=== PATIENT | female | born 1940 | race Caucasian/White ===

== ENCOUNTER 2019-09-15 11:04 | Observation (INO) ==
[2019-09-15] MEDS ORDERED: Ondansetron 4 MG/2 ML VIAL IVP ONE (11:25)
[2019-09-15] MEDS ORDERED: 0.9 % Sodium Chloride 1,000 ML IVC ONE (11:25)
[2019-09-15] MEDS ORDERED: Morphine Sulfate 2 MG/ML SYRINGE IVP ONE (11:25)
[2019-09-15 12:11] LABS: Bilirubin,Urine Negative (Negative); Blood,Urine Negative (Negative); Clarity,Urine Clear (Clear); Color,Urine Yellow (Yellow); Glucose,Urine (UA) Normal (Normal); Ketones,Urine Negative (Negative); Leukocyte Esterase,Urine Negative (Negative); Nitrite,Urine Negative (Negative); PH,Urine 6.5 pH Units (5.0-8.0); Protein,Urine Negative (Neg-Trace); Specific Gravity,Urine > 1.030 (1.010-1.025); Urobilinogen,Urine Normal (Normal)
[2019-09-15 12:11] LABS: Basophils % 0.1 %; Eosinophils % 0.1 %; Hematocrit 36.2 % (35.3-44.9); Hemoglobin 12.8 g/dL (11.5-15.4); Immature Granulocytes % 0.5 % (0-4); Lymphocytes # 1.4 K/mcL (0.6-4.6); Lymphocytes % 8.3 %; Mean Corpuscular HGB Conc 35.4 g/dL (31.6-35.5); Mean Corpuscular Hemoglobin 32.7 pg (28.0-33.3); Mean Corpuscular Volume 92.3 fL (83.0-100.0); Mean Platelet Volume 10.4 fL (9.4-12.4); Neutrophils # 14.2 K/mcL (1.6-8.9); Platelet Count 232 K/mcL (140-400); Red Blood Count 3.92 M/mcL (3.82-4.97); Red Cell Distribution Width 13.7 % (11.5-14.5); White Blood Count 16.7 K/mcL (4.3-11.1)
[2019-09-15 13:02] LABS: Alanine Aminotransferase 20 Units/L (7-52); Albumin 3.1 g/dL (3.5-5.7); Albumin/Globulin Ratio 1.1 (1.1-2.2); Alkaline Phosphatase 191 Units/L (34-104); Aspartate Amino Transferase 32 Units/L (13-39); BUN/Creatinine Ratio 19 (6-26); Bilirubin,Direct 0.1 mg/dL (0.0-0.2); Bilirubin,Indirect 0.3 mg/dL (0.0-1.0); Bilirubin,Total 0.4 mg/dL (0.3-1.0); Blood Urea Nitrogen 10 mg/dL (8-23); Calcium 8.1 mg/dL (8.6-10.3); Carbon Dioxide 28 mEq/L (23-29); Chloride 93 mEq/L (98-107); Globulin 2.7 g/dL (2.4-3.5); Glucose 100 mg/dL (70-105); Lipase 11 Units/L (11-82); Osmolality,Calculated 267 (280-300); Potassium 2.9 mEq/L (3.5-5.1); Sodium 129 mEq/L (136-145); Total Protein 5.8 g/dL (6.4-8.9); eGFR For African Americans > 60 (> 60); eGFR For Non-African Americans > 60 (> 60)
[2019-09-15] MEDS ORDERED: 0.9 % Sodium Chloride w KCl 40 MEQ/1,000 ML MLS IVC SCH (18:00)
[2019-09-15] MEDS ORDERED: Pantoprazole 40 MG VIAL IVP ONE (18:03)
[2019-09-15] MEDS ORDERED: Potassium Chloride 40 MEQ, Lidocaine 1% 2 ML in 0.9 % Sodium Chloride 500 ML IVPB ONE (18:07)
[2019-09-15] MEDS ORDERED: Naloxone 0.4 MG/ML INJ IVP PRN (22:08)
[2019-09-15] MEDS ORDERED: Ondansetron 4 MG/2 ML VIAL IVP PRN (22:08)
[2019-09-15] MEDS ORDERED: Ringers Solution, Lactated 1,000 ML IVC SCH (23:00)
[2019-09-16] MEDS ORDERED: cefTRIAXone 2,000 MG in Water for inj. (sterile) 20 ML IVPB SCH (05:00)
[2019-09-16] MEDS ORDERED: MetroNIDAZOLE 500 MG/100 ML 500 MG/100 ML BAG IVPB SCH (05:00)
[2019-09-16 05:36] LABS: Basophils % 0.1 %; Eosinophils % 0.2 %; Hemoglobin 12.5 g/dL (11.5-15.4); Immature Granulocytes % 0.5 % (0-4); Lymphocytes # 1.4 K/mcL (0.6-4.6); Lymphocytes % 8.8 %; Mean Corpuscular HGB Conc 33.8 g/dL (31.6-35.5); Mean Corpuscular Volume 97.6 fL (83.0-100.0); Mean Platelet Volume 10.6 fL (9.4-12.4); Monocytes # 0.9 K/mcL (0.0-1.3); Neutrophils # 13.2 K/mcL (1.6-8.9); Platelet Count 229 K/mcL (140-400); Red Blood Count 3.79 M/mcL (3.82-4.97); Red Cell Distribution Width 13.9 % (11.5-14.5); Segmented Neutrophils % 84.4 %; White Blood Count 15.6 K/mcL (4.3-11.1)
[2019-09-16 05:43] LABS: Prothrombin Time 11.6 Seconds (9.4-12.1)
[2019-09-16 05:54] LABS: Alanine Aminotransferase 9 Units/L (7-52); Albumin/Globulin Ratio 1.3 (1.1-2.2); Alkaline Phosphatase 92 Units/L (34-104); Aspartate Amino Transferase 18 Units/L (13-39); BUN/Creatinine Ratio 14 (6-26); Bilirubin,Total 0.4 mg/dL (0.3-1.0); Blood Urea Nitrogen 6 mg/dL (8-23); Carbon Dioxide 29 mEq/L (23-29); Chloride 99 mEq/L (98-107); Globulin 2.3 g/dL (2.4-3.5); Glucose 81 mg/dL (70-105); Osmolality,Calculated 279 (280-300); Potassium 3.1 mEq/L (3.5-5.1); Sodium 136 mEq/L (136-145); Total Protein 5.3 g/dL (6.4-8.9); eGFR For African Americans > 60 (> 60); eGFR For Non-African Americans > 60 (> 60)
[2019-09-16] MEDS ORDERED: Potassium Chloride Elixir 20 MEQ/15 ML UDC PO ONE (06:56)
[2019-09-16] MEDS ORDERED: *HR* Heparin 5,000 UNIT/ML VIAL SQ SCH (07:00)
[2019-09-16] MEDS ORDERED: Pantoprazole 40 MG VIAL IVP SCH (07:01)
[2019-09-16] MEDS ORDERED: Potassium Chloride 40 MEQ, Lidocaine 1% 2 ML in 0.9 % Sodium Chloride 500 ML IVPB ONE (07:12)
[2019-09-16 07:24] VITALS: BP 121/76
[2019-09-16] MEDS ORDERED: hydroCHLOROthiazide 25 MG TABLET PO SCH (09:00)
== END 2019-09-16 12:57 | disposition home or self-care (01) ==
LOC: 3ANU 11:04 → EMEROOARM 11:04 → 3ANU 20:14
PROVIDERS: ADMIT Student in an Organized Health Care Education/Training Program; ATTEND Student in an Organized Health Care Education/Training Program

== ENCOUNTER 2019-11-13 15:24 | Inpatient (IN) ==
[2019-11-13] MEDS ORDERED: Ipratropium/Albuterol Neb 3 ML IH ONE (16:02)
[2019-11-13] MEDS ORDERED: Isovue-370 500 ML BOTTLE IVP ONE (16:02)
[2019-11-13] MEDS ORDERED: 0.9 % Sodium Chloride 500 ML IVC ONE ×2 (16:15→20:45)
[2019-11-13 16:52] LABS: Basophils % 0.8 %; Eosinophils % 0.4 %; Hematocrit 36.5 % (35.3-44.9); Hemoglobin 12.9 g/dL (11.5-15.4); Immature Granulocytes % 1.2 % (0-4); Lymphocytes # 0.6 K/mcL (0.6-4.6); Lymphocytes % 11.4 %; Mean Corpuscular HGB Conc 35.3 g/dL (31.6-35.5); Mean Corpuscular Hemoglobin 32.3 pg (28.0-33.3); Mean Corpuscular Volume 91.3 fL (83.0-100.0); Mean Platelet Volume 10.7 fL (9.4-12.4); Monocytes # 0.2 K/mcL (0.0-1.3); Monocytes % 3.3 %; Platelet Count 185 K/mcL (140-400); Red Cell Distribution Width 14.3 % (11.5-14.5); Segmented Neutrophils % 82.9 %; White Blood Count 4.8 K/mcL (4.3-11.1)
[2019-11-13 16:59] LABS: INR 1.1; Prothrombin Time 12.3 Seconds (9.4-12.1)
[2019-11-13 17:17] LABS: Albumin 2.8 g/dL (3.5-5.7); Bilirubin,Total 1.3 mg/dL (0.3-1.0); Calcium 8.9 mg/dL (8.6-10.3); Globulin 2.8 g/dL (2.4-3.5); Potassium 3.8 mEq/L (3.5-5.1); Total Protein 5.6 g/dL (6.4-8.9); Troponin I 0.03 ng/mL (< 0.04)
[2019-11-13 17:22] LABS: Large Platelets Present (Not Present); Platelet Clumps Few (Not Present); Reactive Lymphocytes Present (Not Present); Toxic Vacuolation Present (Not Present)
[2019-11-13] MEDS ORDERED: cefTRIAXone 1,000 MG in Water for inj. (sterile) 10 ML IVP ONE (18:17)
[2019-11-13] MEDS ORDERED: Azithromycin 500 MG in 0.9 % Sodium Chloride 250 ML IVPB ONE (18:17)
[2019-11-13] MEDS ORDERED: 0.9 % Sodium Chloride 500 ML ONE (20:40)
[2019-11-13] MEDS ORDERED: *HR* Heparin 5,000 UNIT/ML VIAL IVP PRN ×2 (20:43)
[2019-11-13] MEDS ORDERED: *HR* Heparin 5,000 UNIT/ML VIAL IVP ONE (20:43)
[2019-11-13] MEDS ORDERED: Heparin 25,000 UNIT/250 ML D5W 25,000 UNIT/250 ML IV.SOLN IVC SCH (20:45)
[2019-11-14] MEDS ORDERED: Acetaminophen 325 MG TABLET PO PRN (00:50)
[2019-11-14] MEDS ORDERED: Naloxone 0.4 MG/ML INJ IVP PRN (00:50)
[2019-11-14] MEDS ORDERED: Ondansetron ODT 4 MG TAB.RAPDIS SL PRN (00:50)
[2019-11-14 01:28] LABS: ABG Base Excess -4 mEq/L (-2 to 3); ABG HCO3 25 mEq/L (21-27); ABG Oxygen Saturation 93 % (95-98); ABG PCO2 64 mmHg (35-45); ABG PO2 85 mmHg (85-104); ABG TCO2 27 mEq/L (20-26)
[2019-11-14 03:50] LABS: Basophils % 1.1 %; Eosinophils % 0.4 %; Hematocrit 35.1 % (35.3-44.9); Hemoglobin 11.7 g/dL (11.5-15.4); Immature Granulocytes % 2.8 % (0-4); Lymphocytes # 0.4 K/mcL (0.6-4.6); Lymphocytes % 13.7 %; Mean Corpuscular HGB Conc 33.3 g/dL (31.6-35.5); Mean Corpuscular Hemoglobin 31.7 pg (28.0-33.3); Mean Corpuscular Volume 95.1 fL (83.0-100.0); Monocytes # 0.1 K/mcL (0.0-1.3); Monocytes % 4.2 %; Platelet Count 119 K/mcL (140-400); Red Blood Count 3.69 M/mcL (3.82-4.97); Red Cell Distribution Width 14.5 % (11.5-14.5); Segmented Neutrophils % 77.8 %; White Blood Count 2.9 K/mcL (4.3-11.1)
[2019-11-14 03:52] LABS: Neutrophils # 2.3 K/mcL (1.6-8.9)
[2019-11-14 04:07] LABS: Potassium 3.7 mEq/L (3.5-5.1)
[2019-11-14 04:16] LABS: Platelet Estimate Normal (Normal)
[2019-11-14] MEDS ORDERED: Furosemide 20 MG/2 ML VIAL IVP ONE (04:45)
[2019-11-14 05:01] LABS: Hematocrit 34.9 % (35.3-44.9); Hemoglobin 11.8 g/dL (11.5-15.4); Mean Corpuscular HGB Conc 33.8 g/dL (31.6-35.5); Mean Corpuscular Hemoglobin 32.4 pg (28.0-33.3); Mean Corpuscular Volume 95.9 fL (83.0-100.0); Monocytes # 0.1 K/mcL (0.0-1.3); Platelet Count 133 K/mcL (140-400); Red Blood Count 3.64 M/mcL (3.82-4.97); Red Cell Distribution Width 14.4 % (11.5-14.5); White Blood Count 3.3 K/mcL (4.3-11.1)
[2019-11-14 05:26] LABS: Eosinophils # 0.1 K/mcL (0.0-0.6); Lymphocytes # 1.5 K/mcL (0.6-4.6); Neutrophils # 1.7 K/mcL (1.6-8.9)
[2019-11-14 05:27] LABS: Hypochromasia Present (Not Present); Platelet Estimate Normal (Normal)
[2019-11-14] MEDS: *HR* Dextrose 50 % in Water (Syg) 50 ML SYRINGE IVP ONE ×2 (08:01→17:26)
[2019-11-14] MEDS ORDERED: *HR* Midazolam HCl 5 MG/5 ML VIAL IVP ONE ×3 (09:27→09:51)
[2019-11-14] MEDS ORDERED: *HR* Etomidate 20 MG/10 ML AMPUL IVP ONE (09:47)
[2019-11-14 10:15] LABS: ABG Base Excess -2 mEq/L (-2 to 3); ABG HCO3 25 mEq/L (21-27); ABG Oxygen Saturation 96 % (95-98); ABG PCO2 53 mmHg (35-45); ABG PH 7.28 pH Units (7.32-7.45); ABG PO2 96 mmHg (85-104); ABG TCO2 27 mEq/L (20-26); Blood Gas Modality AVAPS; Blood Gas VT 450 cc
[2019-11-14 10:24] LABS: Bilirubin,Urine Small (Negative); Blood,Urine Negative (Negative); Clarity,Urine Cloudy (Clear); Color,Urine Dark Yellow (Yellow); Glucose,Urine (UA) Normal (Normal); Ketones,Urine Negative (Negative); Leukocyte Esterase,Urine Negative (Negative); Nitrite,Urine Negative (Negative); PH,Urine 5.5 pH Units (5.0-8.0); Protein,Urine Trace mg/dL (Neg-Trace); Specific Gravity,Urine 1.023 (1.010-1.025); Urobilinogen,Urine Normal (Normal)
[2019-11-14 10:27] LABS: Bacteria,Urine None Seen per hpf (None-Few); Squamous Epithelial Cell,Urine Many per lpf (None-Few)
[2019-11-14 10:35] LABS: Hyaline Casts,Urine Few per lpf (None-Few)
[2019-11-14] MEDS: Pantoprazole 40 MG VIAL IVP SCH (12:01)
[2019-11-14] MEDS ORDERED: Isovue-370 500 ML BOTTLE IVP ONE (12:48)
[2019-11-14] MEDS: Furosemide 20 MG/2 ML VIAL IVP SCH (12:50)
[2019-11-14] MEDS ORDERED: 0.9 % Sodium Chloride 1,000 ML IVC SCH (13:00)
[2019-11-14] MEDS ORDERED: *HR* Metoprolol 5 MG/5 ML VIAL IVP STA (14:50)
[2019-11-14] MEDS ORDERED: *HR* Metoprolol 5 MG/5 ML VIAL IVP ONE (14:52)
[2019-11-14] MEDS ORDERED: *HR* Digoxin 0.5 MG/2 ML AMPUL IVP STA (15:10)
[2019-11-14] MEDS ORDERED: Norepinephrine 4 MG in 0.9 % Sodium Chloride 250 ML IVC SCH (15:25)
[2019-11-14] MEDS ORDERED: *HR* Metoprolol 5 MG/5 ML VIAL IVP PRN (16:04)
[2019-11-14] MEDS: FentaNYL (PF) 1,000 MCG in 0.9 % Sodium Chloride 80 ML IVC SCH (16:13)
[2019-11-14] MEDS ORDERED: Artificial Tears SOLN 15 ML BOTTLE BOTH EYES PRN (16:16)
[2019-11-14] MEDS ORDERED: Vancomycin 1 EACH in 0.9 % Sodium Chloride 250 ML IVPB SCH (17:00)
[2019-11-14] MEDS: Phenylephrine 10 MG in 0.9 % Sodium Chloride 250 ML IVC SCH ×4 (17:03→22:25)
[2019-11-14 17:34] LABS: Albumin/Globulin Ratio 0.9 (1.1-2.2); Bilirubin,Total 0.6 mg/dL (0.3-1.0); Calcium 7.5 mg/dL (8.6-10.3); Globulin 2.2 g/dL (2.4-3.5); Magnesium 1.5 mg/dL (1.6-2.6); Potassium 3.7 mEq/L (3.5-5.1); Total Protein 4.2 g/dL (6.4-8.9)
[2019-11-14 17:43] LABS: ABG Base Excess -3 mEq/L (-2 to 3); ABG HCO3 24 mEq/L (21-27); ABG Oxygen Saturation 91 % (95-98); ABG PCO2 51 mmHg (35-45); ABG PH 7.29 pH Units (7.32-7.45); ABG PO2 69 mmHg (85-104); ABG TCO2 26 mEq/L (20-26); Blood Gas Modality ASSIST CONTROL; Blood Gas VT 450 cc
[2019-11-14] MEDS ORDERED: Azithromycin 500 MG in 0.9 % Sodium Chloride 250 ML IVPB SCH (18:00)
[2019-11-14] MEDS ORDERED: cefTRIAXone 2,000 MG in Water for inj. (sterile) 20 ML IVP SCH (18:00)
[2019-11-14] MEDS: Artificial Tears SOLN 15 ML BOTTLE BOTH EYES SCH ×2 (21:13→23:34)
[2019-11-14] MEDS: Chlorhexidine Rinse 15 ML MOUTHWASH MM SCH (21:13)
[2019-11-14] MEDS: Dexmedetomidine HCl 400 MCG/100 ML MLS IVC SCH (21:21)
[2019-11-14] MEDS: Piperacillin/Tazobactam 3.375 GM in 0.9 % Sodium Chloride Mini Bag 100 ML IVPB SCH (23:44)
[2019-11-15] MEDS: Phenylephrine 20 MG in 0.9 % Sodium Chloride 500 ML IVC SCH ×2 (00:39→06:35)
[2019-11-15] MEDS: FentaNYL (PF) 1,000 MCG in 0.9 % Sodium Chloride 80 ML IVC SCH ×3 (00:40→21:25)
[2019-11-15] MEDS: Artificial Tears SOLN 15 ML BOTTLE BOTH EYES SCH ×6 (03:41→23:51)
[2019-11-15 05:04] LABS: Basophils % 0.7 %; Nucleated Red Blood Cells 0.3 /100 WBC (0)
[2019-11-15 05:06] LABS: Basophils # 0.1 K/mcL (0.0-0.2); Eosinophils % 0.2 %; Hematocrit 32.6 % (35.3-44.9); Hemoglobin 11.3 g/dL (11.5-15.4); Immature Granulocytes % 5.6 % (0-4); Immature Platelets 9.6 % (1.1-6.1); Lymphocytes # 0.6 K/mcL (0.6-4.6); Lymphocytes % 5.3 %; Mean Corpuscular HGB Conc 34.7 g/dL (31.6-35.5); Mean Corpuscular Hemoglobin 32.1 pg (28.0-33.3); Mean Corpuscular Volume 92.6 fL (83.0-100.0); Mean Platelet Volume 11.4 fL (9.4-12.4); Monocytes # 0.5 K/mcL (0.0-1.3); Neutrophils # 10.2 K/mcL (1.6-8.9); Red Blood Count 3.52 M/mcL (3.82-4.97); Red Cell Distribution Width 14.4 % (11.5-14.5); Segmented Neutrophils % 84.2 %; White Blood Count 12.1 K/mcL (4.3-11.1)
[2019-11-15 05:17] LABS: ABG Base Excess -4 mEq/L (-2 to 3); ABG HCO3 22 mEq/L (21-27); ABG Oxygen Saturation 94 % (95-98); ABG PCO2 46 mmHg (35-45); ABG PO2 78 mmHg (85-104); ABG TCO2 24 mEq/L (20-26); Blood Gas Modality ASSIST CONTROL; Blood Gas VT 450 cc
[2019-11-15 05:22] LABS: BUN/Creatinine Ratio 45 (6-26); Blood Urea Nitrogen 45 mg/dL (8-23); Calcium 7.9 mg/dL (8.6-10.3); Carbon Dioxide 22 mEq/L (23-29); Chloride 102 mEq/L (98-107); Glucose 65 mg/dL (70-105); Magnesium 1.9 mg/dL (1.6-2.6); Osmolality,Calculated 284 (280-300); Potassium 3.5 mEq/L (3.5-5.1); Sodium 132 mEq/L (136-145); eGFR For African Americans > 60 (> 60); eGFR For Non-African Americans 55 (> 60)
[2019-11-15 05:48] LABS: Platelet Count 91 K/mcL (140-400)
[2019-11-15 05:49] LABS: Platelet Estimate Decreased (Normal); Reactive Lymphocytes Present (Not Present)
[2019-11-15] MEDS ORDERED: *HR* Dextrose 50 % in Water (Syg) 50 ML SYRINGE IVP ONE (05:51)
[2019-11-15 06:01] LABS: Troponin I 0.56 ng/mL (< 0.04)
[2019-11-15] MEDS: Chlorhexidine Rinse 15 ML MOUTHWASH MM SCH ×2 (07:59→20:24)
[2019-11-15] MEDS: Piperacillin/Tazobactam 3.375 GM in 0.9 % Sodium Chloride Mini Bag 100 ML IVPB SCH ×3 (08:00→23:51)
[2019-11-15] MEDS: Pantoprazole 40 MG VIAL IVP SCH (08:00)
[2019-11-15] MEDS: Furosemide 20 MG/2 ML VIAL IVP SCH ×2 (08:00→09:27)
[2019-11-15] MEDS: Norepinephrine 4 MG in 0.9 % Sodium Chloride 250 ML IVC SCH ×4 (08:00→21:25)
[2019-11-15] MEDS ORDERED: Heparin 1,000 UNITS/500 mL 500 ML ONE (15:43)
[2019-11-15] MEDS ORDERED: 0.9 % Sodium Chloride 2,000 ML ONE (15:43)
[2019-11-15] MEDS ORDERED: *HR* Heparin 10,000 UNIT/10 ML VIAL ONE (15:43)
[2019-11-15] MEDS ORDERED: Nitroglycerin 1,000 MCG/10 ML VIAL IV ONE (15:44)
[2019-11-15] MEDS ORDERED: ISOVUE-370 200 ML INFUS..BTL ONE (15:44)
[2019-11-15] MEDS: Dexmedetomidine HCl 400 MCG/100 ML MLS IVC SCH (17:38)
[2019-11-15] MEDS ORDERED: *HR* Atropine Sulfate 1 MG/10 ML SYRINGE ONE (23:07)
[2019-11-16] MEDS: Artificial Tears SOLN 15 ML BOTTLE BOTH EYES SCH ×6 (03:43→23:27)
[2019-11-16 04:02] LABS: Basophils # 0.1 K/mcL (0.0-0.2); Basophils % 0.7 %; Eosinophils % 0.1 %; Hematocrit 30.8 % (35.3-44.9); Hemoglobin 10.3 g/dL (11.5-15.4); Immature Platelets 8.4 % (1.1-6.1); Lymphocytes # 0.9 K/mcL (0.6-4.6); Lymphocytes % 4.2 %; Mean Corpuscular HGB Conc 33.4 g/dL (31.6-35.5); Mean Corpuscular Hemoglobin 31.9 pg (28.0-33.3); Mean Corpuscular Volume 95.4 fL (83.0-100.0); Mean Platelet Volume 11.1 fL (9.4-12.4); Monocytes # 0.6 K/mcL (0.0-1.3); Monocytes % 2.8 %; Nucleated Red Blood Cells 0.1 /100 WBC (0); Red Blood Count 3.23 M/mcL (3.82-4.97); Red Cell Distribution Width 14.6 % (11.5-14.5); Segmented Neutrophils % 83.2 %
[2019-11-16 04:09] LABS: ABG Base Excess -5 mEq/L (-2 to 3); ABG HCO3 22 mEq/L (21-27); ABG Oxygen Saturation 95 % (95-98); ABG PCO2 48 mmHg (35-45); ABG PH 7.27 pH Units (7.32-7.45); ABG PO2 86 mmHg (85-104); ABG TCO2 24 mEq/L (20-26); Blood Gas Modality ASSIST CONTROL; Blood Gas VT 400 cc
[2019-11-16 04:24] LABS: BUN/Creatinine Ratio 51 (6-26); Blood Urea Nitrogen 45 mg/dL (8-23); Calcium 8.3 mg/dL (8.6-10.3); Carbon Dioxide 21 mEq/L (23-29); Chloride 104 mEq/L (98-107); Glucose 89 mg/dL (70-105); Magnesium 2.1 mg/dL (1.6-2.6); Osmolality,Calculated 295 (280-300); Phosphorous 2.9 mg/dL (2.7-4.5); Potassium 3.5 mEq/L (3.5-5.1); Sodium 137 mEq/L (136-145); eGFR For African Americans > 60 (> 60); eGFR For Non-African Americans > 60 (> 60)
[2019-11-16 04:37] LABS: Neutrophils # 17.1 K/mcL (1.6-8.9); Platelet Count 66 K/mcL (140-400); White Blood Count 20.6 K/mcL (4.3-11.1)
[2019-11-16 04:38] LABS: Platelet Estimate Decreased (Normal)
[2019-11-16] MEDS: FentaNYL (PF) 1,000 MCG in 0.9 % Sodium Chloride 80 ML IVC SCH ×3 (05:04→19:00)
[2019-11-16] MEDS: Piperacillin/Tazobactam 3.375 GM in 0.9 % Sodium Chloride Mini Bag 100 ML IVPB SCH ×3 (08:31→23:31)
[2019-11-16] MEDS: Chlorhexidine Rinse 15 ML MOUTHWASH MM SCH ×2 (08:32→19:38)
[2019-11-16] MEDS: Pantoprazole 40 MG VIAL IVP SCH (08:32)
[2019-11-16] MEDS: Furosemide 20 MG/2 ML VIAL IVP SCH (08:32)
[2019-11-16] MEDS ORDERED: Ipratropium/Albuterol Neb 3 ML IH PRN (08:48)
[2019-11-16] MEDS: Ipratropium/Albuterol Neb 3 ML IH SCH ×4 (10:58→23:34)
[2019-11-16] MEDS: Sennosides/Docusate Sodium TABLET PO SCH ×2 (11:57→19:38)
[2019-11-16] MEDS: *HR* Heparin 5,000 UNIT/ML VIAL SQ SCH ×2 (14:26→19:38)
[2019-11-16] MEDS: Dexmedetomidine HCl 400 MCG/100 ML MLS IVC SCH (16:36)
[2019-11-17] MEDS: FentaNYL (PF) 1,000 MCG in 0.9 % Sodium Chloride 80 ML IVC SCH ×2 (00:30→05:28)
[2019-11-17] MEDS: Artificial Tears SOLN 15 ML BOTTLE BOTH EYES SCH ×6 (03:14→23:37)
[2019-11-17 03:31] LABS: Hematocrit 29.8 % (35.3-44.9); Hemoglobin 9.9 g/dL (11.5-15.4); Mean Corpuscular HGB Conc 33.2 g/dL (31.6-35.5); Mean Corpuscular Hemoglobin 32.1 pg (28.0-33.3); Mean Corpuscular Volume 96.8 fL (83.0-100.0); Mean Platelet Volume 11.8 fL (9.4-12.4); Red Blood Count 3.08 M/mcL (3.82-4.97); Red Cell Distribution Width 15.5 % (11.5-14.5); White Blood Count 27.3 K/mcL (4.3-11.1)
[2019-11-17 03:33] LABS: Platelet Count 77 K/mcL (140-400)
[2019-11-17 03:57] LABS: BUN/Creatinine Ratio 48 (6-26); Blood Urea Nitrogen 49 mg/dL (8-23); Calcium 8.6 mg/dL (8.6-10.3); Carbon Dioxide 23 mEq/L (23-29); Chloride 105 mEq/L (98-107); Glucose 166 mg/dL (70-105); Magnesium 2.2 mg/dL (1.6-2.6); Osmolality,Calculated 307 (280-300); Potassium 3.7 mEq/L (3.5-5.1); Sodium 140 mEq/L (136-145); eGFR For African Americans > 60 (> 60); eGFR For Non-African Americans 52 (> 60)
[2019-11-17] MEDS: Ipratropium/Albuterol Neb 3 ML IH SCH ×6 (04:00→23:31)
[2019-11-17 04:03] LABS: ABG Base Excess -4 mEq/L (-2 to 3); ABG HCO3 25 mEq/L (21-27); ABG Oxygen Saturation 95 % (95-98); ABG PCO2 61 mmHg (35-45); ABG PH 7.21 pH Units (7.32-7.45); ABG PO2 91 mmHg (85-104); ABG TCO2 27 mEq/L (20-26); Blood Gas Modality ASSIST CONTROL; Blood Gas VT 400 cc
[2019-11-17 04:30] LABS: Lymphocytes # 0.6 K/mcL (0.6-4.6); Neutrophils # 26.8 K/mcL (1.6-8.9)
[2019-11-17] MEDS: *HR* Heparin 5,000 UNIT/ML VIAL SQ SCH ×3 (05:28→20:34)
[2019-11-17] MEDS: Furosemide 20 MG/2 ML VIAL IVP SCH (10:48)
[2019-11-17] MEDS: Chlorhexidine Rinse 15 ML MOUTHWASH MM SCH ×2 (10:48→20:34)
[2019-11-17] MEDS: Pantoprazole 40 MG VIAL IVP SCH (10:48)
[2019-11-17] MEDS: Piperacillin/Tazobactam 3.375 GM in 0.9 % Sodium Chloride Mini Bag 100 ML IVPB SCH ×3 (10:49→23:37)
[2019-11-17] MEDS: Sennosides/Docusate Sodium TABLET PO SCH ×2 (10:49→20:34)
[2019-11-17] MEDS: Budesonide/Formoterol 160/4.5 1 PUFF INH IH SCH ×2 (11:43→19:49)
[2019-11-17] MEDS: Azithromycin 500 MG in 0.9 % Sodium Chloride 250 ML IVPB SCH (14:46)
[2019-11-17] MEDS: Dexmedetomidine HCl 400 MCG/100 ML MLS IVC SCH (17:18)
[2019-11-17] MEDS: Lactulose Oral Soln 20 GM/30 ML UDC PO SCH (20:34)
[2019-11-17] MEDS ORDERED: D5% in Water 1,000 ML IVC PRN (23:57)
[2019-11-17] MEDS ORDERED: Dextrose Gel 15 GM/37.5 ML TUBE PO PRN ×2 (23:57)
[2019-11-17] MEDS ORDERED: *HR* Dextrose 50 % in Water (Syg) 50 ML SYRINGE IVP PRN (23:57)
[2019-11-18] MEDS ORDERED: Insulin LISPRO 300 UNITS/3 ML VIAL SQ SCH (00:01)
[2019-11-18] MEDS ORDERED: D5% in Water 1,000 ML IVC PRN (00:13)
[2019-11-18] MEDS ORDERED: *HR* Dextrose 50 % in Water (Syg) 50 ML SYRINGE IVP PRN (00:13)
[2019-11-18] MEDS ORDERED: Dextrose Gel 15 GM/37.5 ML TUBE PO PRN ×2 (00:13)
[2019-11-18] MEDS: Insulin LISPRO 300 UNITS/3 ML VIAL SQ SCH ×7 (00:22→21:31)
[2019-11-18] MEDS: Ipratropium/Albuterol Neb 3 ML IH SCH ×5 (03:31→20:33)
[2019-11-18 03:55] LABS: Hematocrit 28.9 % (35.3-44.9)
[2019-11-18 03:56] LABS: Hemoglobin 9.6 g/dL (11.5-15.4); Mean Corpuscular HGB Conc 33.2 g/dL (31.6-35.5); Mean Corpuscular Volume 96.3 fL (83.0-100.0); Mean Platelet Volume 11.9 fL (9.4-12.4); Red Cell Distribution Width 15.2 % (11.5-14.5); White Blood Count 28.4 K/mcL (4.3-11.1)
[2019-11-18] MEDS: Artificial Tears SOLN 15 ML BOTTLE BOTH EYES SCH ×6 (04:08→23:32)
[2019-11-18 04:15] LABS: Platelet Count 90 K/mcL (140-400)
[2019-11-18 04:19] LABS: BUN/Creatinine Ratio 62 (6-26); Blood Urea Nitrogen 48 mg/dL (8-23); Calcium 8.8 mg/dL (8.6-10.3); Carbon Dioxide 28 mEq/L (23-29); Chloride 109 mEq/L (98-107); Glucose 201 mg/dL (70-105); Magnesium 2.3 mg/dL (1.6-2.6); Osmolality,Calculated 318 (280-300); Potassium 3.4 mEq/L (3.5-5.1); Sodium 145 mEq/L (136-145); eGFR For African Americans > 60 (> 60); eGFR For Non-African Americans > 60 (> 60)
[2019-11-18 04:46] LABS: ABG Base Excess 3 mEq/L (-2 to 3); ABG HCO3 30 mEq/L (21-27); ABG Oxygen Saturation 97 % (95-98); ABG PCO2 54 mmHg (35-45); ABG PH 7.35 pH Units (7.32-7.45); ABG PO2 102 mmHg (85-104); ABG TCO2 32 mEq/L (20-26); Blood Gas Modality PRVC; Blood Gas VT 450 cc
[2019-11-18] MEDS: *HR* Heparin 5,000 UNIT/ML VIAL SQ SCH ×3 (05:28→22:24)
[2019-11-18] MEDS: Norepinephrine 4 MG in 0.9 % Sodium Chloride 250 ML IVC SCH (07:00)
[2019-11-18] MEDS: Budesonide/Formoterol 160/4.5 1 PUFF INH IH SCH ×2 (07:34→20:31)
[2019-11-18] MEDS: Chlorhexidine Rinse 15 ML MOUTHWASH MM SCH ×2 (09:02→20:16)
[2019-11-18] MEDS: Lactulose Oral Soln 20 GM/30 ML UDC PO SCH ×3 (09:02→20:16)
[2019-11-18] MEDS: Furosemide 20 MG/2 ML VIAL IVP SCH (09:03)
[2019-11-18] MEDS: Pantoprazole 40 MG VIAL IVP SCH (09:03)
[2019-11-18] MEDS: Piperacillin/Tazobactam 3.375 GM in 0.9 % Sodium Chloride Mini Bag 100 ML IVPB SCH ×3 (09:03→23:32)
[2019-11-18] MEDS: Sennosides/Docusate Sodium TABLET PO SCH ×2 (09:03→20:16)
[2019-11-18 09:28] LABS: Nucleated Red Blood Cells 0.2 /100 WBC (0)
[2019-11-18 09:36] LABS: Alanine Aminotransferase 24 Units/L (7-52); Albumin 2.2 g/dL (3.5-5.7); Albumin/Globulin Ratio 0.8 (1.1-2.2); Alkaline Phosphatase 247 Units/L (34-104); Aspartate Amino Transferase 36 Units/L (13-39); Bilirubin,Direct 0.1 mg/dL (0.0-0.2); Bilirubin,Indirect 0.3 mg/dL (0.0-1.0); Bilirubin,Total 0.4 mg/dL (0.3-1.0); Globulin 2.9 g/dL (2.4-3.5); Total Protein 5.1 g/dL (6.4-8.9)
[2019-11-18] MEDS: FentaNYL (PF) 1,000 MCG in 0.9 % Sodium Chloride 80 ML IVC SCH ×2 (09:50→23:33)
[2019-11-18 10:17] LABS: Lymphocytes # 0.6 K/mcL (0.6-4.6); Neutrophils # 26.1 K/mcL (1.6-8.9)
[2019-11-18 10:20] LABS: Hypochromasia Present (Not Present); Platelet Estimate Decreased (Normal)
[2019-11-18] MEDS ORDERED: Isovue-370 500 ML BOTTLE IVP ONE (14:03)
[2019-11-18] MEDS: Azithromycin 500 MG in 0.9 % Sodium Chloride 250 ML IVPB SCH (14:37)
[2019-11-18] MEDS: Dexmedetomidine HCl 400 MCG/100 ML MLS IVC SCH (16:01)
[2019-11-18 17:56] LABS: Appearance of Body Fluid Slightly Hazy (Clear); Volume of Body Fluid 15 mL; Volume of Body Fluid 25 mL
[2019-11-18] MEDS ORDERED: Furosemide 40 MG/4 ML VIAL IVP ONE (18:54)
[2019-11-18] MEDS: Vancomycin Oral Soln 125 MG/2.5 ML UDC PO SCH ×2 (18:57→22:46)
[2019-11-19] MEDS: Insulin LISPRO 300 UNITS/3 ML VIAL SQ SCH ×3 (00:38→08:07)
[2019-11-19] MEDS: Ipratropium/Albuterol Neb 3 ML IH SCH ×3 (00:44→07:25)
[2019-11-19] MEDS: Artificial Tears SOLN 15 ML BOTTLE BOTH EYES SCH ×2 (04:24→08:05)
[2019-11-19 04:49] LABS: Nucleated Red Blood Cells 0.1 /100 WBC (0)
[2019-11-19 04:51] LABS: Hematocrit 30.8 % (35.3-44.9); Hemoglobin 10.4 g/dL (11.5-15.4); Mean Corpuscular HGB Conc 33.8 g/dL (31.6-35.5); Mean Corpuscular Hemoglobin 32.1 pg (28.0-33.3); Mean Corpuscular Volume 95.1 fL (83.0-100.0); Mean Platelet Volume 11.6 fL (9.4-12.4); Platelet Count 151 K/mcL (140-400); Red Blood Count 3.24 M/mcL (3.82-4.97); Red Cell Distribution Width 14.8 % (11.5-14.5)
[2019-11-19 04:57] LABS: White Blood Count 36.3 K/mcL (4.3-11.1)
[2019-11-19 05:06] LABS: BUN/Creatinine Ratio 53 (6-26); Blood Urea Nitrogen 33 mg/dL (8-23); Calcium 8.5 mg/dL (8.6-10.3); Carbon Dioxide 34 mEq/L (23-29); Chloride 113 mEq/L (98-107); Glucose 107 mg/dL (70-105); Magnesium 2.1 mg/dL (1.6-2.6); Osmolality,Calculated 322 (280-300); Potassium 2.7 mEq/L (3.5-5.1); Sodium 152 mEq/L (136-145); eGFR For African Americans > 60 (> 60); eGFR For Non-African Americans > 60 (> 60)
[2019-11-19 05:14] LABS: ABG Base Excess 9 mEq/L (-2 to 3); ABG HCO3 35 mEq/L (21-27); ABG Oxygen Saturation 93 % (95-98); ABG PCO2 51 mmHg (35-45); ABG PH 7.45 pH Units (7.32-7.45); ABG PO2 65 mmHg (85-104); ABG TCO2 37 mEq/L (20-26)
[2019-11-19] MEDS: *HR* Heparin 5,000 UNIT/ML VIAL SQ SCH (05:40)
[2019-11-19 05:57] LABS: Lymphocytes # 0.7 K/mcL (0.6-4.6); Monocytes # 0.7 K/mcL (0.0-1.3); Neutrophils # 34.9 K/mcL (1.6-8.9)
[2019-11-19 05:58] LABS: Platelet Estimate Slight Decrease (Normal)
[2019-11-19] MEDS: Budesonide/Formoterol 160/4.5 1 PUFF INH IH SCH (07:25)
[2019-11-19] MEDS ORDERED: Potassium Chloride Elixir 20 MEQ/15 ML UDC GTUBE ONE (08:02)
[2019-11-19] MEDS: Norepinephrine 4 MG in 0.9 % Sodium Chloride 250 ML IVC SCH (08:03)
[2019-11-19] MEDS: Chlorhexidine Rinse 15 ML MOUTHWASH MM SCH (08:24)
[2019-11-19] MEDS: Vancomycin Oral Soln 125 MG/2.5 ML UDC PO SCH (08:24)
[2019-11-19] MEDS: Furosemide 20 MG/2 ML VIAL IVP SCH (08:24)
[2019-11-19] MEDS: Lactulose Oral Soln 20 GM/30 ML UDC PO SCH (08:25)
[2019-11-19] MEDS: Piperacillin/Tazobactam 3.375 GM in 0.9 % Sodium Chloride Mini Bag 100 ML IVPB SCH (08:25)
[2019-11-19] MEDS: Pantoprazole 40 MG VIAL IVP SCH (08:25)
[2019-11-19] MEDS: Sennosides/Docusate Sodium TABLET PO SCH (08:25)
[2019-11-19] MEDS ORDERED: Isovue-370 500 ML BOTTLE IVP ONE (09:46)
[2019-11-19] MEDS ORDERED: *HR* LORazepam 2 MG/ML VIAL IVP PRN ×2 (10:30→11:50)
[2019-11-19] MEDS ORDERED: Glycopyrrolate 0.2 MG/ML VIAL IVP ONE (10:30)
[2019-11-19] MEDS ORDERED: *HR* LORazepam 2 MG/ML VIAL IVP ONE ×2 (10:30→11:49)
[2019-11-19] MEDS ORDERED: Scopolamine Patch 1.5 MG PATCH.TD72 TD ONE (10:48)
[2019-11-19] MEDS: FentaNYL (PF) 1,000 MCG in 0.9 % Sodium Chloride 80 ML IVC SCH (11:16)
[2019-11-19 11:22] VITALS: BP 117/62
[2019-11-19] MEDS ORDERED: Aminoglycoside Consult 1 EACH MC ONE (13:13)
== END 2019-11-19 13:14 | disposition expired | DRG 207 ==
LOC: EMEROOARM 15:24 → ICNU 15:24 → SUATTDRO 11-14 02:56 → 2NNU 11-14 03:07 → ICNU 11-14 16:27
PROVIDERS: ADMIT Internal Medicine; ATTEND Family Medicine